=== PATIENT | female | born 1940 | race Caucasian/White ===

== ENCOUNTER 2018-02-27 06:51 | Day surgery (SDC) | payer BC ==
[2018-02-17 17:14] VITALS: BMI 25.5
[2018-02-27 09:39] VITALS: TEMP 98.7
[2018-02-27 13:56] VITALS: BP 130/74; PULSE 78
== END 2018-02-27 12:02 | disposition home or self-care (01) ==
LOC: FASU 06:51 → FM/S 07:14 → FASU 12:02
PROVIDERS: ATTEND Orthopaedic Surgery Orthopaedic Surgery of the Spine
PROC: 0RB30ZZ Excision of Cervical Vertebral Disc, Open Approach (ICD-10-PCS; principal; 2018-02-27)
PROC: 0RG10A0 Fusion of Cervical Vertebral Joint with Interbody Fusion Device, Anterior Approach, Anterior Column, Open Approach (ICD-10-PCS; 2018-02-27)
PROC: 0RG10K0 Fusion of Cervical Vertebral Joint with Nonautologous Tissue Substitute, Anterior Approach, Anterior Column, Open Approach (ICD-10-PCS; 2018-02-27)
DX: M48.02 Spinal stenosis, cervical region (principal)
CPT/HCPCS: 22551; 22845; 22853; C1889; 72050-TC-FY; 88304-TC; 94010; 94760; 97116-GP; 97161-GP; J0131